=== PATIENT | male | born 1980 | race Two or more races ===

== ENCOUNTER → 2017-03-12 08:58 | Outpatient (CLI) | payer BC | END | disposition home or self-care (01) | LOC: D.US 08:58 | DX: R63.0 Anorexia (principal) ==

== ENCOUNTER → 2018-12-22 09:02 | Outpatient (CLI) | payer BC | END | disposition home or self-care (01) | LOC: D.HCCARDIO 09:00 | PROVIDERS: ATTEND Internal Medicine Cardiovascular Disease | DX: I10 Essential (primary) hypertension (principal) ==

== ENCOUNTER → 2020-06-23 09:13 | Outpatient (CLI) | payer BC ==
[2020-05-04 01:57] VITALS: BMI 24.9
[~2020-06-23 09:13] MED LIST: LEVOFLOXACIN500 MG PO
== END | disposition home or self-care (01) ==
LOC: D.CT 08:30
PROVIDERS: ATTEND Family Medicine
DX: R91.1 Solitary pulmonary nodule (principal)